=== PATIENT | female | born 1975 | race Caucasian/White ===

== ENCOUNTER 2016-07-23 00:46 | Emergency (ER) | payer OTHER ==
--- NOTE | 2016-07-23 00:56 | ED Physician Documentation ---
Dyspnea - HISTORIAN Historian: patient - HPI Chief Complaint: Dyspnea Onset: days ago (5 days) Duration: continues in ED Initiating Event: upper respiratory illness Severity: moderate Associated Symptoms: other (nonproductive cough). denies: chills, fever Further Comments: yes (Antonio started to have some respiratory problems 5 days ago, tonight started tohave some pleuritic chest pain) - ROS CONST: recent illness GI/: denies: abdominal pain, vomiting, nausea, diarrhea - PAST HX Lung Disease: denies: asthma, COPD, pneumothorax Surgeries/Procedures: cholecystectomy Other History: other (gastric paresis, ) Allergies/Adverse Reactions: Allergies Allergy/AdvReac Type Severity Reaction Status Date / Time aspirin AdvReac Rash Unverified 07/23/16 01:36 Penicillins AdvReac Rash Unverified 07/23/16 01:36 Home Medications: Ambulatory Orders Medication Instructions Recorded Escitalopram Oxalate [Lexapro] 20 mg PO DAILY 07/23/16 Methylprednisolone [Medrol] 4 mg PO DIRECTED 07/23/16 - SOCIAL HX Smoking History: non-smoker Alcohol Use: none Drug Use: none - FAMILY HX Family History: no significant history - REVIEWED ASSESSMENTS Nursing Assessment Reviewed: Yes Vitals Reviewed: Yes Progress - EKG/XRAY/CT EKG: NSR Comments: flipped t wave III Dyspnea Physical Exam - EXAM General Appearance: alert, moderate distress, anxious EENT: ENT inspection normal, pharynx normal, no signs of dehydration Neck: nml inspection. No: meningismus, lymphadenopathy Respiratory: respiratory distress, wheezes (right), chest wall tenderness ( lower sternal area). No: prolonged expirations, retractions, accessory muscle use, decreased air movement, rales, rhonchi CVS: reg. rate & rhythm, no murmur, no gallop, no friction rub, pulses full, pulses equal Abdomen: no organomegaly, no distention, other (epigastirc tenderness). No: guarding, rebounding Skin: color nml, no rash, cyanosis Extremities: non-tender, normal range of motion, no evidence of injury Neuro/Psych: oriented x3, mood/affect nml, disoriented Discharge Clincal Impression: Pleurisy Referrals: Jessica Pardo MD [Primary Care Provider] - 2 Days Additional Instructions: Drink a lot of fluids, take Levaquin as directed. If breathing gets worse to see your primary care provider or return to the ED. Home Medications: Ambulatory Orders Escitalopram Oxalate [Lexapro] 20 mg PO DAILY 07/23/16 Methylprednisolone [Medrol] 4 mg PO DIRECTED 07/23/16 Condition: Stable Disposition: HOME, SELF-CARE Decision to Admit: NO Date of Decison to Admit: 07/23/16 Decision Time: 01:37
[2016-07-23] MEDS ORDERED: KETOROLAC TROMETHAMINE 30 MG/1ML VIAL IVP ONE (01:05)
[2016-07-23 01:29] LABS: BASOPHILS % 0.4 (0.0-1.5); EOSINOPHILS % 0.9 % (0.0-6.8); LYMPHOCYTES # 2.8 # k/uL (0.6-4.0); MEAN CORPUSCULAR HEMOGLOBIN 28.3 pg (28.0-34.0); MONOCYTES # 0.5 # k/uL (0.0-0.9); MONOCYTES % 8.1 % (0.0-11.0); NEUTROPHILS # 2.9 # k/uL (1.4-7.7)
[2016-07-23 01:46] LABS: eGFR (African) > 60; eGFR (Non-African) > 60
[2016-07-23] MEDS ORDERED: NAPROXEN 250 MG TABLET PO ONE (02:03)
[2016-07-23 02:29] VITALS: BP 130/80
--- NOTE | 2016-07-23 09:48 | Diagnostic Imaging Report ---
[facility] [address] [facility].[address] [address] Report Submission Date: Jul 23, 2016 1:38:58 AM CISSP Patient Study Name: MARY JANE RIVERO Date: Jul 23, 2016 1:18:03 AM CISSP Modality Type: CR Gender: F Description: CHEST : 79 Institution: [facility] Physician: ALETHEA LUKE Pa and lateral chest Clinical history : Chest pain Comparison May 17, 2009 Technique pa and lateral upright Findings: The lung mosher are clear. I see no hilar or mediastinal mass. There is no pleural effusion or lesion of the bony thorax. Impression: No acute pulmonary disease Electronically signed on Jul 23, 2016 1:38:58 AM CISSP by: Ruiz CARBALLO
== END 2016-07-23 02:13 | disposition home or self-care (01) ==
LOC: ED 00:46
DX: R09.1 Pleurisy (principal)
CPT/HCPCS: 71020; 80053; 85025; 85379; J1885; 96372; 99283

== ENCOUNTER 2016-09-27 10:37 | Outpatient (CLI) | payer OTHER | END 2016-09-27 10:40 | LOC: LABRHC 10:37 | PROVIDERS: ATTEND Physician Assistant | DX: D22.9 Melanocytic nevi, unspecified (principal) ==

== ENCOUNTER 2017-02-05 19:12 | Emergency (ER) | payer SELFPAY ==
--- NOTE | 2017-02-05 19:36 | ED Physician Documentation ---
Nausea/Vomiting/Diarrhea - HISTORIAN Historian: patient, spouse - HPI Chief Complaint: Nausea,Vomiting,Diarrhea Additional Information: states that she has been vomiting since noon, and epigastric pain started 1/2 hr after that. This happens all the time, and "they have to make sure her intestines aren't wrapped around her Jim's bands. she has chronic watery diarrhea. She took Zofran odt at home, "but it didn't work." she is currently not vomiting or wretching. says she is cold and clammy. Onset: hours Duration: constant Last known Well Code/Unknown Code: Known Timing: gradual onset, still present Severity: mild Further Comments: no - Associated Symptoms Vomiting: frequent Diarrhea: mild Abdominal Pain: aching, burning, epigastric - ROS CONST: none CVS/RESP: denies: chest pain, shortness of breath GI/: none EYES/ENT: none MS/SKIN/LYMPH: denies: joint pain NEURO/PSYCH: none - PAST HX Past History: none Other History: gall stones Surgeries/Procedures: appendectomy, cholecystectomy, other (gastric bypass) Allergies/Adverse Reactions: Allergies Allergy/AdvReac Type Severity Reaction Status Date / Time aspirin Allergy Intermediate Rash Verified 02/05/17 19:26 Penicillins Allergy Intermediate Rash Verified 02/05/17 19:26 Home Medications: Ambulatory Orders Medication Instructions Recorded Escitalopram Oxalate [Lexapro] 20 mg PO DAILY 07/23/16 - SOCIAL HX Smoking History: non-smoker Alcohol Use: none Drug Use: none - FAMILY HX Family History: none - VITAL SIGNS Vital Signs: Vital Signs Temp Pulse Resp BP Pulse Ox 97.7 F 72 20 176/77 100 02/05/17 19:12 02/05/17 19:12 02/05/17 19:12 02/05/17 19:12 02/05/17 19:12 ED Results Lab/Radiology - Lab Results Lab Results: Lab Results 02/05/17 02/05/17 19:57 19:57 WBC 14.90 K/ul H K/ul (4.00-12.00) RBC 4.83 M/ul M/ul (3.90-5.20) Hgb 14.0 g/dL g/dL (12.0-16.0) Hct 41.4 % % (34.5-46.5) MCV 85.7 fl fl (80.0-100.0) MCH 29.0 pg pg (28.0-34.0) MCHC 33.9 g/dL g/dL (30.0-36.0) RDW 12.9 % % (11.3-14.3) Plt Count 290 K/mm3 K/mm3 (130-400) Neut % (Auto) 90.4 % H % (39.0-79.0) Lymph % (Auto) 7.6 % L % (16.0-50.0) [place] % (Auto) 0.9 % % (0.0-11.0) Eos % (Auto) 0.7 % % (0.0-6.8) Baso % (Auto) 0.1 (0.0-1.5) Neut # (Auto) 13.5 # k/uL H # k/uL (1.4-7.7) Lymph # (Auto) 1.1 # k/uL # k/uL (0.6-4.0) [place] # (Auto) 0.1 # k/uL # k/uL (0.0-0.9) Eos # (Auto) 0.1 # k/uL # k/uL (0.0-0.6) Baso # (Auto) 0.0 # k/uL # k/uL (0.0-0.5) Reactive Lymphs % 0.3 % % (0.0-5.0) Reactive Lymphs # 0.0 # k/uL # k/uL (0.0-0.8) Sodium 137 mmol/L mmol/L (136-145) Potassium 3.3 mmol/L L mmol/L (3.5-5.0) Chloride 100 mmol/L mmol/L (98-110) Carbon Dioxide 23 mmol/L mmol/L (20-32) BUN 8 mg/dL L mg/dL (10-26) Creatinine 0.6 mg/dL mg/dL (0.4-1.5) Estimated Creat Clear 275 Est GFR ( Amer) > 60 (60 - ) Est GFR (Non-Af Amer) > 60 (60 - ) Glucose 150 mg/dL H mg/dL (70-99) Calcium 9.6 mg/dL mg/dL (8.5-10.5) Total Bilirubin 1.1 mg/dL mg/dL (0.2-1.2) AST 20 U/L U/L (0-41) ALT 20 U/L U/L (0-45) Alkaline Phosphatase 88 U/L U/L (46-116) Total Protein 8.0 g/dL g/dL (6.0-8.5) Albumin 4.8 g/dL g/dL (3.0-5.5) Amylase 36 U/L U/L (20-104) - Radiology Radiology Impressions: CT shows thickened small bowel, in the mid jejunum, terminal ileum is sparred. no obstruction - Orders Orders: ED Orders Category Date Time Status Place IV Lock 1T Care 02/05/17 19:45 Active ABD SERIES PA CHEST [RAD] Stat Exams 02/05/[address] ABD & PELVIS W/ CON Stat Exams 02/05/17 Taken AMYLASE Routine Lab 02/05/17 19:57 Completed CBC/PLATELET/DIFF Routine Lab 02/05/17 19:57 Completed CMP Routine Lab 02/05/17 19:57 Completed LIPASE Routine Lab 02/05/17 Ordered 0.9 % Sodium Chloride [Normal Saline] 1,000 ml Med 02/05/17 20:00 Ordered IV Q10H Ondansetron HCl/Pf [Zofran 4 mg/2 ml] Med 02/05/17 19:41 Discontinued 4 mg IVP NOW ONE Nausea Physical Exam - EXAM General Appearance: alert, mild distress EENT: eye inspection normal, ENT inspection normal, pharynx normal, no signs of dehydration Neck: normal inspection Respiratory: no resp distress, breath sounds normal CVS: reg rate & rhythm Abdomen: tenderness Skin: warm/dry, normal color Extremities: non-tender Neuro/Psych: oriented X3 Discharge 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
[2017-02-05] MEDS ORDERED: 0.9 % SODIUM CHLORIDE 1,000 ML IV ONE (19:54)
[2017-02-05] MEDS: ONDANSETRON HCL/PF 4 MG/ 2ML VIAL IVP ONE (19:57)
[2017-02-05] MEDS: 0.9 % SODIUM CHLORIDE 1,000 ML IV SCH (20:10)
[2017-02-05 20:16] LABS: eGFR (African) > 60; eGFR (Non-African) > 60
[2017-02-05 20:22] LABS: BASOPHILS % 0.1 (0.0-1.5); EOSINOPHILS % 0.7 % (0.0-6.8); MEAN CORPUSCULAR VOLUME 85.7 fl (80.0-100.0); MONOCYTES % 0.9 % (0.0-11.0); NEUTROPHILS # 13.5 # k/uL (1.4-7.7)
[2017-02-05] MEDS: metroNIDAZOLE 500 MG TABLET PO ONE (23:11)
[2017-02-05 23:36] VITALS: BP 128/72
--- NOTE | 2017-02-06 05:21 | Diagnostic Imaging Report ---
LA IZQUIERDO [facility] [address] [facility] [address] [address] Report Submission Date: Feb 05, 2017 10:19:10 PM CDT Patient Study Name: MARY JANE RIVERO Date: Feb 05, 2017 9:58:28 PM CDT Modality Type: CT\SR Gender: F Description: CT ABD & PELVIS W/ CON : 79 Institution: [facility] Physician: LA IZQUIERDO CT of the abdomen and pelvis without contrast CLINICAL HISTORY: Epigastric pain. Gastric sleeve. Elevated white cell count. TECHNIQUE: CT abdomen and pelvis is performed following oral administration of contrast without the use of intravenous contrast. Sagittal and coronal reconstructions are performed by the technologist. FINDINGS: Visualized lung bases are clear. Liver and spleen demonstrate normal attenuation without focal defect. Gallbladder is surgically absent. There is no pancreatic or adrenal abnormality. The kidneys are of normal size, shape and position. There is congenital nonrotation of bowel with the colon in the left side of the abdomen. There is marked small bowel wall thickening in the right mid abdomen with stranding in the adjacent fat. This spares the terminal ileum. Findings are consistent with inflammatory or infectious etiology. This could represent Crohn's disease although does spare the terminal ileum. Mild spondylitic changes are seen in the thoracolumbar spine. IMPRESSION: Inflammatory changes in the mid small bowel with wall thickening and stranding in the adjacent fat. Congenital nonrotation of the bowel. Mild thoracolumbar spondylosis Postoperative changes. Electronically signed on Feb 05, 2017 10:19:10 PM CDT by: Ghulam CARBALLO
--- NOTE | 2017-02-06 05:22 | Diagnostic Imaging Report ---
LA IZQUIERDO [facility] [address] [facility] [address] Report Submission Date: Feb 05, 2017 8:25:37 PM CDT Patient Study Name: MARY JANE RIVERO Date: Feb 05, 2017 8:03:37 PM CDT Modality Type: CR Gender: F Description: ABDOMEN : 79 Institution: [facility] Physician: LA IZQUIERDO Examination: Obstruction series History: Abdominal discomfort Findings: 4 views obtained of the chest and abdomen. Single view of the chest demonstrates a normal cardiac silhouette. No focal infiltrate. No blunting of the costophrenic margins. No abnormal dilation of the large or small bowel. Air and stool throughout the large bowel. No suspicious calcification projecting over the renal fossa or the lower pelvic region. Surgical clips right upper quadrant. Osseous structures are appropriate for age. Impression: No acute cardiopulmonary process. No ileus or obstruction. No suspicious calcifications by plain film sensitivity. Electronically signed on Feb 05, 2017 8:25:37 PM CDT by: Pedrito CARBALLO
== END 2017-02-05 23:13 | disposition home or self-care (01) ==
LOC: ED 19:12
DX: Q43.3 Congenital malformations of intestinal fixation (principal); K50.00 Crohn's disease of small intestine without complications
CPT/HCPCS: 74022; 74177; 80053; 82150; 85025; 96361; 96374; 99283; J2405; J7030; S1016

== ENCOUNTER 2017-12-28 10:26 | Outpatient (CLI) | payer OTHER ==
[2017-12-28 11:31] LABS: eGFR (African) > 60; eGFR (Non-African) > 60
== END 2017-12-28 10:28 ==
LOC: LAB 10:26
PROVIDERS: ATTEND Physician Assistant
DX: E03.9 Hypothyroidism, unspecified (principal); I10 Essential (primary) hypertension; Z13.6 Encounter for screening for cardiovascular disorders
CPT/HCPCS: 36415; 80053; 80061; 84443